=== PATIENT | female | born 1960 | race Asian ===

== ENCOUNTER 2019-01-23 07:41 | Day surgery (SDC) | payer BC, OTHER ==
[~2019-01-23] VITALS: Ht 30.5 cm; Wt 0.5 kg
== END 2019-01-23 10:23 | disposition home or self-care (01) ==
LOC: OR 07:41
PROC: 3E0R33Z Introduction of Anti-inflammatory into Spinal Canal, Percutaneous Approach (ICD-10-PCS; principal; 2019-01-23)
PROC: B01BYZZ Fluoroscopy of Spinal Cord using Other Contrast (ICD-10-PCS; 2019-01-23)
DX: M51.17 Intervertebral disc disorders with radiculopathy, lumbosacral region (principal)
CPT/HCPCS: J1020; J2001; J2250; J2405; J2704

== ENCOUNTER 2019-02-20 07:57 | Day surgery (SDC) | payer BC, OTHER ==
[2019-02-20 09:11] LABS: PLATELET COUNT 243 K/uL (152-353)
[2019-02-20 09:19] LABS: POTASSIUM 3.5 mmol/L (3.6-5.2)
== END 2019-02-20 10:05 | disposition home or self-care (01) ==
LOC: OR 07:57
PROVIDERS: Pain Medicine Interventional Pain Medicine
PROC: 3E0R33Z Introduction of Anti-inflammatory into Spinal Canal, Percutaneous Approach (ICD-10-PCS; principal; 2019-02-20)
PROC: B01BYZZ Fluoroscopy of Spinal Cord using Other Contrast (ICD-10-PCS; 2019-02-20)
DX: M51.16 Intervertebral disc disorders with radiculopathy, lumbar region (principal)
CPT/HCPCS: 80053; 85027; J1020; J2001; J2405; J2704